=== PATIENT | male | born 1985 ===

== ENCOUNTER 2018-03-11 13:04 | Emergency (ER) | payer SELFPAY ==
[2018-03-11 13:30] VITALS: O2SAT 96
--- NOTE | 2018-03-11 14:16 | ED PDOC ---
History of Present Illness History of Present Illness: 32yo male, otherwise well, comes to ER reporting cough, cold, bodyaches and a tactile fever x 3 days. Patient also reports generalize malaise, headache and abdominal pain as well. Patient denies any vomiting, diarrhea, and offers no additional complaints. HPI: Influenza Time Seen by Provider: 03/11/18 13:41 Chief Complaint: Flu-like Symptoms Chief Complaint (Provider): Cough, myalgias History Per: Patient, Dry Man ([id number]) Exam Limitations: no limitations Have you had recent travel within the past 21 days to any of: No Onset/Duration Of Symptoms: Days, Gradual Symptoms include: fever, headache, bodyaches, cough. denies: vomiting, diarrhea Past Medical History Reviewed: Historical Data, Nursing Documentation, Vital Signs Vital Signs: Last Vital Signs Temp 102.2 F H 03/11/18 13:28 Pulse 113 H 03/11/18 13:28 Resp 20 03/11/18 13:28 BP 124/80 03/11/18 13:28 Pulse Ox 96 03/11/18 13:28 - Medical History PMH: No Chronic Diseases - Surgical History Surgical History: No Surg Hx - Family History Family History: States: No Known Family Hx - Allergies Allergies/Adverse Reactions: Allergies Allergy/AdvReac Type Severity Reaction Status Date / Time No Known Allergies Allergy Verified 03/11/18 13:28 Review of Systems ROS Statement: Except As Marked, All Systems Reviewed And Found Negative Constitutional: Positive for: Fever (tactile), Malaise Respiratory: Positive for: Cough Gastrointestinal: Positive for: Abdominal Pain. Negative for: Nausea, Vomiting Physical Exam - Reviewed Nursing Documentation Reviewed: Yes Vital Signs Reviewed: Yes - Physical Exam Appears: Positive for: Non-toxic, No Acute Distress Head Exam: Positive for: ATRAUMATIC, NORMAL INSPECTION, NORMOCEPHALIC Skin: Positive for: Normal Color Eye Exam: Positive for: Normal appearance Neck: Positive for: Normal, Supple Cardiovascular/Chest: Positive for: Regular Rate, Rhythm Respiratory: Positive for: Normal Breath Sounds. Negative for: Rales, Rhonchi, Wheezing Gastrointestinal/Abdominal: Positive for: Soft, Tenderness (minimal diffuse tenderness). Negative for: Mass, Distended, Guarding, Rebound Back: Positive for: Normal Inspection Extremity: Positive for: Normal ROM. Negative for: Pedal Edema, Deformity Neurologic/Psych: Positive for: Alert, Oriented. Negative for: Motor/Sensory Deficits Medical Decision Making Medical Decision Making: Assessment: 32yo male with cough, malaise, bodyaches; likely influenza Plan: -- Rapid flu -- Motrin 600mg PO 1620 Serology results reviewed, patient positive for Influenza A. Patient informed of findings, to be discharged home with prescription for Tamiflu and Motrin. Informed to follow up with PMD in 2-3 days, and if symptoms worsen to return to the ER. Pt. well appearing, nontoxic. Repeat abd. exams, abd. soft/nt. Repeat hr 86, afebrile. Flu + however outside tamiflu window. Scribe Attestation: Documented by Angela Marcelo acting as a scribe for CALVIN Bond. Provider Attestation: All medical record entries made by the Scribe were at my direction and personally dictated by me. I have reviewed the chart and agree that the record accurately reflects my personal performance of the history, physical exam, medical decision making, and the department course for this patient. I have also personally directed, reviewed, and agree with the discharge instructions and disposition. - ECG O2 Sat by Pulse Oximetry: 96 Disposition - Clinical Impression Clinical Impression: Influenza - Patient ED Disposition Is Patient to be Admitted: No - Disposition Disposition: Routine/Home Disposition Time: 16:30 Condition: STABLE Instructions: Flu, Adult (DC) Forms: [employer] ([place]ican) Print Language: GREENLANDIC
[2018-03-11 16:57] VITALS: BP 117/84; PULSE 88; RESP 18; TEMP 99.7
== END 2018-03-11 17:00 | disposition home or self-care (01) ==
LOC: H.ER 13:04
DX: J11.1 Influenza due to unidentified influenza virus with other respiratory manifestations (principal)